=== PATIENT | female | born 1995 | race African-American/Black ===

== ENCOUNTER 2021-03-26 08:32 | Day surgery (SDC) | payer OTHER ==
[~2021-03-26 08:32] MED LIST: FENTANYL CITR 250 MCG/5 ML ONE; KETOROLAC 30 MG/ML INJ ONE; LANO/MINERAL OIL/PETRO 3.5 GM ONE; LIDOCAINE 2% MPF 5 ML VIAL ONE; MIDAZOLAM HCL 2 MG/2 ML INJ ONE; ONDANSETRON 4 MG/2 ML VIAL ONE; ROCURONIUM 50 MG/5 ML VIAL IV ONE; dexAMETHasone 10 MG/ML VIAL ONE; propofoL 200 MG/20 ML VIAL IV ONE
[2021-03-26 08:42] LABS: Specific Gravity 1.025 (1.005-1.030)
[2021-03-26] MEDS ORDERED: Ringers Lactate 1,000 ML IV ONE ×3 (09:28→11:30)
[2021-03-26] MEDS ORDERED: CEFAZOLIN/SWI 1gm 1 GM/10 ML SYR ONE (09:29)
[2021-03-26] MEDS ORDERED: SCOPOLAMINE HYDROBROMIDE PATCH TD ONE (09:29)
[2021-03-26 09:44] VITALS: O2SAT 100
[2021-03-26] MEDS ORDERED: VECURONIUM 10 MG/VIAL IV ONE (11:09)
[2021-03-26] MEDS ORDERED: NS 0.9% VIAL 10 ML ONE ×2 (11:09→15:02)
[2021-03-26] MEDS ORDERED: LIDOCAINE 2% MPF 5 ML VIAL ONE (11:20)
[2021-03-26] MEDS ORDERED: ROCURONIUM 50 MG/5 ML VIAL IV ONE (11:20)
[2021-03-26] MEDS ORDERED: MIDAZOLAM HCL 2 MG/2 ML INJ ONE (11:20)
[2021-03-26] MEDS ORDERED: propofoL 200 MG/20 ML VIAL IV ONE (11:20)
[2021-03-26] MEDS ORDERED: KETOROLAC 30 MG/ML INJ ONE (11:20)
[2021-03-26] MEDS ORDERED: dexAMETHasone 10 MG/ML VIAL ONE (11:20)
[2021-03-26] MEDS ORDERED: LANO/MINERAL OIL/PETRO 3.5 GM ONE (11:20)
[2021-03-26] MEDS ORDERED: FENTANYL CITR 250 MCG/5 ML ONE (11:20)
[2021-03-26] MEDS ORDERED: ONDANSETRON 4 MG/2 ML VIAL ONE ×2 (11:20→15:42)
[2021-03-26] MEDS ORDERED: Mastisol Adhesive Liq ONE (11:30)
[2021-03-26] MEDS ORDERED: BACITRACIN 50000 UNIT VIAL ONE (11:30)
[2021-03-26] MEDS ORDERED: LIDOCAINE 1% W/EPI 1:100,000 MDV 20 ML VIAL ONE (11:30)
[2021-03-26] MEDS ORDERED: CEFAZOLIN SODIUM 1 GM/VIAL ONE ×2 (11:30→15:02)
[2021-03-26] MEDS ORDERED: NS 0.9% VIAL 40 ML ONE (11:30)
[2021-03-26] MEDS ORDERED: GENTAMICIN SULF 80 MG/2ML INJ ONE (11:30)
[2021-03-26] MEDS ORDERED: Phenylephrine HCl 10 MG/ML 1 ML VIAL ONE (12:07)
[2021-03-26] MEDS ORDERED: GLYCOPYRROLATE 0.2 MG/ML SYR ONE (14:38)
[2021-03-26] MEDS ORDERED: NEOSTIGMINE 1 MG/ML -5 ML ONE (14:39)
[2021-03-26] MEDS ORDERED: MORPHINE 10 MG/ML VIAL ONE (15:23)
[2021-03-26] MEDS: HYDROMORPHONE HCL 1 MG/ML INJ ONE ×2 (15:26→15:31)
[2021-03-26] MEDS ORDERED: CODEINE 30MG/APAP 300MG TAB PO ONE (16:18)
[2021-03-26] MEDS ORDERED: CODEINE 30MG/APAP 300MG TAB ONE (16:35)
[2021-03-26 17:52] VITALS: BP 101/65; TEMP 97.7
--- NOTE | 2021-03-27 01:35 | OP ---
Surgeon: Jame Samaniego MD Preoperative Diagnosis: Breast enlargement and descent. Postoperative Diagnosis: Breast enlargement and descent. Procedure: Lift reduction. Anesthesia: General Procedure In Detail: After the satisfactory induction of general anesthesia, chest was prepped with DuraPrep and dry sterile drapes applied in the usual manner. A 5 cm template was used to outline the right and left areolas. Then incision was made around the areolas. Then transverse and curvilinear incision was made in both breasts. Intervening skin was de-epithelialized with dermabrader and Epic ut. Then the right breast was approached first. Electrocautery was used to elevate flaps approximat celestino 1.5 cm thick toward the sternum, clavicle, anterior axillary line. After this was done, the infe rior incision was made. The wound was irrigated with antibiotic solution and the de-epithelized tiss ue was formed into cone with 2-0 PDS suture. Flaps were elevated at 12 o'clock, 1:30 and 3 o'clock p osition and the straps were then woven in and out of the pectoralis major muscle back to the base of the cone, sewn to themselves with 2-0 PDS suture. This was done for 12 o'clock, 1:30 straps. The 3 o'clock strap was sewn over the sternum with 2-0 Ethibond. Mirror image procedure was done on opposi te side. Then we returned to the right side, irrigated the wound with antibiotic solution. Cut exce ss dog ears laterally. Put a 10 JUSTINO drain and sewn in place with 2-0 silk. Closed the wound with 3-0 Vicryl interrupted, followed by 3-0 PDS running subcuticular tied from lateral to medial, medial to lateral, and tied in the vertical meridian of breast. Left side done in mirror-image manner. The pa tient was sat up. Site for new nipple-areolar complex was marked out. The area was then excised and then nipple-areolar complex delivered and then sewn with interrupted 4-0 PDS running subcuticular. Tinc of benzoin and Steri-Strips were applied followed by Esmarch, fluffs, and Jarocho wrap. The patient tolerated procedure well. The amount removed from the right breast was 140 g, left was 80 g. GH/MODL Voice ID: [id number] Report ID: [id number]
== END 2021-03-26 17:05 | disposition home health service (06) ==
LOC: OR 08:32
PROVIDERS: ATTEND Specialist
PROC: 0HSV0ZZ Reposition Bilateral Breast, Open Approach (ICD-10-PCS; principal; 2021-03-26 10:00)
DX: N64.81 Ptosis of breast (principal); Z20.822 Contact with and (suspected) exposure to COVID-19
CPT/HCPCS: 81025; 88304; J0690; J1100; J1170; J1580; J2250; J2370; J2405; J2704; J2710; J3010; J7120